=== PATIENT | male | born 1955 | race Caucasian/White ===

== ENCOUNTER 2022-05-25 00:04 | Day surgery (SDC) | payer MEDICARE, SELFPAY ==
[2022-03-08 13:43] VITALS: BMI 29.2
[2022-04-20 12:52] VITALS: BMI 29.2
--- NOTE | 2022-05-13 13:21 | PC.NURSE ---
Pt updated with new date/arrival/procedure time. Pt verbalized understanding. Pt confirmed no changes to home medications or health history since previous PAT call completed.
--- NOTE | 2022-05-24 14:31 | PM.HPGS ---
History of Present Illness History of Present Illness Consent: Risks, benefits, and alternatives have been discussed and questions answered. Patient agrees to proceed with procedure. Chief complaint: neoplasm screening, dysphagia Narrative: Kenneth Monge is a 66 year old male Who was referred for colon cancer screening. He has also been having difficulty swallowing, since he had radiation and chemotherapy for lung cancer about fiber 6 months ago. He actually has no symptoms during his therapy and a resolved but now he is having again difficulty swallowing with even soft foods like pudding causing pain when he gets down to certain spot substernally. he also has been nauseated after meals lately. He had about 6 polyps removed at the time of his last colonoscopy Review of Systems Review of Systems: All systems reviewed & are unremarkable except as noted in HPI and below PMFSH Past Medical History Medical History Coronary artery disease Heart disease Surgical History Surgical History History of knee surgery Meniscus Dr. Man History of shoulder surgery Right Dr. 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 Substance use type: does not use Living arrangements: with family Additional living arrangements comments: and granddaughter Additional occupation/education comments: [employer] Spiritual care concerns: No Meds Home Medications and Allergies Home Medications Medication Instructions Recorded Confirmed Type amlodipine 10 mg tablet 10 mg PO DAILY 12/17/19 04/20/22 History aspirin 81 mg tablet,delayed 81 mg PO DAILY 12/17/19 04/20/22 History release (Adult Low Dose Aspirin) carvedilol 25 mg tablet 25 mg PO Q12H 12/17/19 04/20/22 History chlorthalidone 25 mg tablet 25 mg PO DAILY 12/17/19 04/20/22 History meloxicam 7.5 mg tablet (Mobic) 7.5 mg PO DAILY #30 tabs 12/17/19 04/20/22 Rx ramipril 10 mg capsule 10 mg PO DAILY 12/17/19 04/20/22 History atorvastatin 40 mg tablet 1 tablet PO DAILY 03/08/22 04/20/22 History azathioprine 50 mg tablet 1 tablet PO DAILY 03/08/22 04/20/22 History leflunomide 10 mg tablet 1 tablet PO DAILY 03/08/22 04/20/22 History semaglutide 0.25 mg or 0.5 mg (2 1 ea subcut WEEKLY 03/08/22 04/20/22 History mg/1.5 mL) subcutaneous pen injector (Ozempic) Allergies Allergy/AdvReac Type Severity Reaction Status Date / Time No Known Allergies Allergy Verified 05/25/22 08:02 Exam Const: General: alert Orientation/consciousness: patient oriented x3 Resp: Auscultation: clear to auscultation bilaterally Cardio: Rhythm: regular rhythm GI: GI Palp: Yes Soft to palpation and No Tenderness to palpation present (GI) Neuro: General: patient oriented x3 Assessment and Plan Assessment and plan (1) Dysphagia: Code(s): R13.10 - Dysphagia, unspecified Status: Acute Assessment and Plan: EGD with possible biopsy or dilatation or cautery. (2) Colon cancer screening: Code(s): Z12.11 - Encounter for screening for malignant neoplasm of colon Status: Acute Assessment and Plan: Colonoscopy with possible biopsy or polypectomy or cautery or injection of substances.
[2022-05-25 08:02] VITALS: BP 161/93; PULSE 87; RESP 22; TEMP 36.2; O2SAT 99
[2022-05-25] MEDS: LACTATED RINGERS 1,000 ML 150 ML IV CONT (08:08)
[2022-05-25 08:16] LABS: Glucose Point of Care 74 mg/dl (65-105)
--- NOTE | 2022-05-25 09:13 | WPDANESEPPF ---
Anes - Initial Pre Proc Eval Procedure: Operation Date: 05/25/22 09:30 Proposed Procedures p Esophagogastroduodenoscopy & Screening Colonoscopy - Bon Cerda MD Date/Time: 05/25/22 09:13 Surgeon: Bon Cerda MD Pre Op Diagnosis: neoplasm screening, dysphagia Patient Data Age: 66 Gender: M Height: 1.75 m Weight: 84.3 kg Last Vital Signs Temp 97.2 F L 05/25/22 08:02 Pulse 87 05/25/22 08:02 Resp 22 H 05/25/22 08:02 BP 161/93 H 05/25/22 08:02 Pulse Ox 99 05/25/22 08:02 O2 Del Method Room Air 05/25/22 08:02 Allergies Allergy/AdvReac Type Severity Reaction Status Date / Time No Known Allergies Allergy Verified 05/25/22 08:02 Home Medications Medication Instructions Recorded Confirmed Type amlodipine 10 mg tablet 10 mg PO DAILY 12/17/19 04/20/22 History aspirin 81 mg tablet,delayed 81 mg PO DAILY 12/17/19 04/20/22 History release (Adult Low Dose Aspirin) carvedilol 25 mg tablet 25 mg PO Q12H 12/17/19 04/20/22 History chlorthalidone 25 mg tablet 25 mg PO DAILY 12/17/19 04/20/22 History meloxicam 7.5 mg tablet (Mobic) 7.5 mg PO DAILY #30 tabs 12/17/19 04/20/22 Rx ramipril 10 mg capsule 10 mg PO DAILY 12/17/19 04/20/22 History atorvastatin 40 mg tablet 1 tablet PO DAILY 03/08/22 04/20/22 History azathioprine 50 mg tablet 1 tablet PO DAILY 03/08/22 04/20/22 History leflunomide 10 mg tablet 1 tablet PO DAILY 03/08/22 04/20/22 History semaglutide 0.25 mg or 0.5 mg (2 1 ea subcut WEEKLY 03/08/22 04/20/22 History mg/1.5 mL) subcutaneous pen injector (Ozempic) Laboratory Tests 05/25/22 08:09 POC Capillary Glucose 74 mg/dl mg/dl (65-105) Patient hx anesthesia problems: none Family hx anesthesia problems: none Results Review: All pre-operative results and documents have been reviewed as part of the pre-operative evaluation. [facility] Past Medical History Medical History Coronary artery disease Heart disease Surgical History Surgical History History of knee surgery Meniscus Dr. Man History of shoulder surgery Right Dr. 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 Substance use type: does not use Living arrangements: with family Additional living arrangements comments: and granddaughter Additional occupation/education comments: [employer] Spiritual care concerns: No Anes - Eval Final PreProcedure Day of Procedure 05/25/22 09:13 Patient weight: normal Heart: regular rate and rhythm Lungs: clear to auscultation Airway: Mallampati scale class II Neurological: alert and oriented Last oral intake: >/= 8 hours ASA classification: III Emergent: no Anesthetic plan: proceed Anesthesia type and monitoring: general GIVS and standard monitoring Results Review: All pre-operative results and documents have been reviewed as part of the pre-operative evaluation. Informed Consent: The patient's anesthetic plan and its attendant risks and benefits were discussed with the patient/family/POA. Questions were solicited and answers provided to the satisfaction of the patient/family/POA.
--- NOTE | 2022-05-25 09:53 | SUR.OPER ---
egd ended at 933, colonoscopy started at 939
[2022-05-25 09:57] VITALS: BP 117/62; PULSE 73; RESP 22; O2SAT 98
[2022-05-25 10:07] VITALS: BP 124/70; PULSE 69; RESP 21; O2SAT 98
[2022-05-25 10:17] VITALS: BP 137/79; PULSE 76; RESP 22; O2SAT 100
== END 2022-05-25 10:40 | disposition home or self-care (01) ==
PROVIDERS: PCP Internal Medicine; Visit Provider Internal Medicine Gastroenterology
PROC: 0DJ08ZZ Inspection of Upper Intestinal Tract, Via Natural or Artificial Opening Endoscopic (ICD-10-PCS; CPT 43235; principal; 2022-05-25 09:30)
DX: Z12.11 Encounter for screening for malignant neoplasm of colon (principal); K57.30 Diverticulosis of large intestine without perforation or abscess without bleeding; Z86.010 Personal history of colon polyps; K21.00 Gastro-esophageal reflux disease with esophagitis, without bleeding; K29.70 Gastritis, unspecified, without bleeding; R13.10 Dysphagia, unspecified; I25.10 Atherosclerotic heart disease of native coronary artery without angina pectoris; Z87.891 Personal history of nicotine dependence; Z79.899 Other long term (current) drug therapy; Z79.82 Long term (current) use of aspirin; Z85.118 Personal history of other malignant neoplasm of bronchus and lung; Z92.3 Personal history of irradiation; Z92.21 Personal history of antineoplastic chemotherapy
CPT/HCPCS: 43239; G0105; 82948; 87081; J2704; J7120